=== PATIENT | female | born 1970 | race Caucasian/White ===

== ENCOUNTER 2019-07-10 18:53 | Emergency (ER) | payer OTHER ==
[~2019-07-10] VITALS: Ht 180.3 cm; Wt 97.5 kg
[~2019-07-10 18:53] MED LIST: BACTRIM DS TAB1 EACH PO; CIPROFLOXACIN500 M1; FLEXERIL PO; MEDROLDOSEPACK PO; NORCO 5-325 TA1 EACH PO; PERCOCET 10-321 EACH PO; PERCOCET 5-3251 EACH PO; ZIAC 5-6.25 MG1 EACH; ZOFRAN ODT4 MG PO
[2019-07-10] MEDS ORDERED: COZAAR 25 MG TA25 M1 PO (19:02)
[2019-07-10] MEDS ORDERED: ONDANSETRON HCL4 M2 PO (20:23)
[2019-07-10] MEDS ORDERED: MEDROLDOSEPACK PO (20:23)
[2019-07-10] MEDS ORDERED: NORCO 5-325 TA1 EAC1 PO (20:23)
[2019-07-10] MEDS ORDERED: ZANAFLEX4 MG PO (20:23)
[2019-07-10] MEDS ORDERED: NAPROSYN500 MG PO (20:23)
[2019-07-10 20:52] VITALS: BP 125/80
--- NOTE | 2019-07-11 14:14 | EKG ---
[place] [address] ELECTROCARDIOGRAM REPORT Name: ANALI TOM [id number]: 07/10/19 Attend Phys: Discharge: 07/10/19 Date of : 74 Report #: [id number] THIS REPORT FOR: //name// [facility] ED Test Date: 2019-07-10 Test Time: 19:08:07 Pat Name: ANALI TOM Department: Room: Gender: F [place]: [place] : 1970 Requested By: Azeb Alejandro Order Number: [id number] Reading MD: Jermaine Rodriguez Measurements Intervals [place] Rate: 69 P: 24 [place]: 187 QRS: 16 QRSD: 92 T: 58 QT: 399 QTc: 428 Interpretive Statements Sinus rhythm ST elev, probable normal early repol pattern No previous ECG available for comparison Electronically Signed On 07-11-2019 14:14:04 [employer] by Jermaine Rodriguez [email or web address] <ELECTRONICALLY SIGNED> By: Jermaine Rodriguez MD, [facility] 07/11/19 1414 1908 1908 Jeramine Rodriguez MD, FACC /EPI
== END 2019-07-10 20:52 | disposition home or self-care (01) ==
LOC: M.ERS 18:53
DX: M51.26 Other intervertebral disc displacement, lumbar region (principal); M54.42 Lumbago with sciatica, left side; M54.41 Lumbago with sciatica, right side; M48.061 Spinal stenosis, lumbar region without neurogenic claudication; I10 Essential (primary) hypertension; Z90.49 Acquired absence of other specified parts of digestive tract